=== PATIENT | male | born 1970 | race Hispanic/Latino ===

== ENCOUNTER 2016-03-08 09:09 | Emergency (ER) | payer OTHER ==
[2016-03-08 09:24] VITALS: BP 158/78
--- NOTE | 2016-03-08 11:00 | ED MVC/FALL/TRAUMA COMPLAINT ---
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 PT WAS SEEN AT [facility] AFTER FALL AND PT STATES "THEY WERE SO RUDE TO ME, REFUSED TO GIVE ME FOOD AND PAIN MEDS. SO I SIGNED OUT AND LEFT." Triage Nurses Notes Reviewed? yes HPI: 45-year-old male here with multiple complaints, initially he told the triage nurse who is here after a fall yesterday back pain however upon my evaluation is complaining of left ankle pain. He had a fall yesterday, was dizzy and tripped, twisted his leg and ankle. He states he was seen at [facility] yesterday because he felt dizzy and fell and stayed there overnight, however he states that they were rude to him, would not give him pain medication and would not feed him and he left AGAINST MEDICAL ADVICE. Pain is worse when he walks.HE HAS HISTORY OF PREVIOUS FOOT ANKLE FRACTURE AND ARTHRITIS Past History Travel History Traveled to [place] past 21 day No Medical History Any Pertinent Medical History? see below for history Cardiovascular: hypertension, hyperlipidemia Musculoskeletal: FOOT FX ARTHRITIS Endocrine: diabetes Surgical History Surgical History: non-contributory Psychosocial History What is your primary language Croatian Tobacco Use: Never used Family History Hx Contributory? No Review of Systems Review of Systems Constitutional: Reports: see HPI. Eyes: Reports: no symptoms. Ears, Nose, Throat, Mouth: Reports: no symptoms. Respiratory: Reports: no symptoms. Cardiovascular: Reports: no symptoms. Gastrointestinal/Abdominal: Reports: no symptoms. Genitourinary: Reports: no symptoms. Musculoskeletal: Reports: see HPI. Skin: Reports: no symptoms. Neurological/Psychological: Reports: no symptoms. All Other Systems: Reviewed and Negative Physical Exam Physical Exam General Appearance: well developed/nourished Comments: Well-developed well-nourished no apparent distress. HEENT: Atraumatic, extraocular motion intact Neck: Supple, no lymphadenopathy Back: Nontender Respiratory: No respiratory distress Extremities: No edema, full range of motion Neuro: Alert and oriented x3 Psych: Mood affect normal, normal memory normal judgment. Skin: Warm and dry, no rash on exposed skin Left ankle, mild diffuse tenderness, mild swelling, no instability, range of motion is limited. Neurovascularly intact. No foot or ankle tenderness. Core Measures ACS in differential dx? No Severe Sepsis Present: No Septic Shock Present: No Progress Differential Diagnosis: aoritic dissection, abd injury, C/T/L spine injury, ext injury, ICH, pelvis injury, pnemothorax, spinal cord injury Plan of Care: Orders Procedure Date/time Status FingerStick- Glucose 03/08 1054 Active Diagnostic Imaging: Viewed by Me: Radiology Read. Discussed w/RAD: Radiology Read. Radiology Impression: PATIENT: MARGO QUACH PRESENT AGE: 45 PATIENT ACCOUNT NO: [id number] : 68 LOCATION: [facility] ORDERING PHYSICIAN: GIL MOLINA SERVICE DATE: 03/08/16 EXAM TYPE : RAD - XRY-ANKLE 3 OR MORE VIEWS L EXAMINATION: XR ANKLE, LEFT CLINICAL INFORMATION: Fall, injury. COMPARISON: None TECHNIQUE: AP, lateral, and mortise views of the left ankle. FINDINGS: There is circumferential soft tissue swelling. No evidence of acute fracture or dislocation. The ankle mortise is congruent. No ankle joint effusion. Small plantar heel spur with mild spurring at the dorsal midfoot. IMPRESSION: Soft tissue swelling with no evidence of acute fracture. DICTATED BY: HARRIETT MURRAY,ARVIN DATE/TIME DICTATED:03/08/161110 CLUB DIRECTOR:ALLEN Comments: Blood sugar 125 Amadeo wrap applied to the ankle by myself. Recommended anti-inflammatory medication and rest ice, activity as tolerated Departure Departure Disposition: HOME OR SELF CARE Condition: Stable Clinical Impression Primary Impression: Left ankle sprain Qualifiers: Encounter type: initial encounter Involved ligament of ankle: other ligament Qualified Code: S93.492A - Sprain of other ligament of left ankle, initial encounter Referrals: PATIENT HAS NO PRIMARY CARE DR (PCP/Family) Additional Instructions: Rest, ice, compression (amadeo wrap), elevation. Naprosyn as needed for pain. Gradual return to activity as tolerated. Follow-up with orthopedist in one to 2 weeks if no better. Departure Forms: Customer Survey General Discharge Information Prescriptions: Current Visit Scripts Naproxen (Naprosyn) 1 TAB PO BID PRN PAIN #30 TAB
--- NOTE | 2016-03-08 11:16 | RADIOLOGY REPORT ---
EXAMINATION: XR ANKLE, LEFT CLINICAL INFORMATION: Fall, injury. COMPARISON: None TECHNIQUE: AP, lateral, and mortise views of the left ankle. FINDINGS: There is circumferential soft tissue swelling. No evidence of acute fracture or dislocation. The ankle mortise is congruent. No ankle joint effusion. Small plantar heel spur with mild spurring at the dorsal midfoot. IMPRESSION: Soft tissue swelling with no evidence of acute fracture.
[2016-03-08] MEDS ORDERED: NAPROSYN500 M1 PO (11:26)
== END 2016-03-08 11:51 ==
LOC: ERH 09:09
DX: M54.9 Dorsalgia, unspecified (principal); S93.402A Sprain of unspecified ligament of left ankle, initial encounter; X50.9XXA Other and unspecified overexertion or strenuous movements or postures, initial encounter
CPT/HCPCS: 73610-LT